=== PATIENT | female | born 1955 | race African-American/Black ===

== ENCOUNTER → 2017-03-01 | Outpatient (CLI) | payer MEDICARE ==
--- NOTE | 2017-03-01 15:22 | Diagnostic Imaging Report ---
Indication: COUGH Technique: 2 views of the chest Comparison: none. Findings: Lungs and pleural spaces are clear. Heart size is normal. Bones are unremarkable. Surgical clips are seen in the epigastrium. Impression: No acute process
--- NOTE | 2017-03-03 23:10 | Diagnostic Imaging Report ---
APPROVED REPORT CPT Code: 84757 Present Symptoms Lower Extremity Edema: Bilateral BILATERAL: Imaging reveals a patent deep venous system bilaterally. There is no evidence of thrombus within the femoral, popliteal or tibial segments. The greater saphenous veins are also within normal limits. Doppler indicates normal spontaneous flow within these segments.
== END | disposition home or self-care (01) ==
LOC: VAS 13:38
DX: R60.9 Edema, unspecified (principal); R05 Cough
CPT/HCPCS: 71020; 93970

== ENCOUNTER 2018-11-13 12:00 | Outpatient (CLI) | payer MEDICARE, OTHER ==
--- NOTE | 2018-11-13 13:55 | Diagnostic Imaging Report ---
Indication: Left foot pain Technique: 3 views left foot Comparison: none Findings: No acute fractures. No dislocations. There are degenerative changes of the first metatarsophalangeal joint. There are also degenerative changes of the second and third tarsometatarsal joints. There is a small plantar spur. There are vascular calcifications Impression: No acute bony trauma Degenerative changes, as described
== END 2018-11-13 14:00 | disposition home or self-care (01) ==
LOC: RAD 12:00
DX: M79.672 Pain in left foot (principal); M77.9 Enthesopathy, unspecified